=== PATIENT | female | born 1985 | race Caucasian/White ===

== ENCOUNTER 2017-05-11 20:27 | Emergency (ER) | payer OTHER ==
[~2017-05-11] VITALS: Ht 162.6 cm; Wt 75.0 kg
[~2017-05-11 20:27] MED LIST: NORE1TAB50 PO; RXC5 PO; SUMA100T16 PO; VNTHFA/IN INH
[2017-05-11 20:47] VITALS: TEMP 36.8; Ht 162.6 cm; Wt 75.0 kg
--- NOTE | 2017-05-11 22:00 | EMERGENCY ROOM VISIT NOTE ---
History First contact with patient: 21:33 Chief Complaint: VAGINAL BLEEDING Stated Complaint: 6 WEEKS , BLEEDING,CRAMPS History of Present Illness The patient is a 31 year old female who presents to the Emergency Room with complaints of vaginal bleeding. The patient states that she is approximately 6 weeks by dates. Her last menstrual period was March 31, 2017. She states she has had 3 positive urine tests. She states that this afternoon, she developed abdominal cramping and light vaginal bleeding. She states that the bleeding is brownish and pinkish in color. She has not passed any clots. She has had 2 previous pregnancies which went full term. She delivered by . She compares the pain to very mild period cramps and rates her discomfort a 1/10. She is blood type O+. She denies any history of bleeding or clotting disorders. Review of Systems A complete 10 point review of systems was reviewed with the patient with pertinent positives and negatives as per history of present illness. All else were negative. Past Medical/Surgical History Medical Problems: (1) Migraine (2) Tobacco use disorder Family History FH: heart disease MOTHER GRANDFATHER GRANDMOTHER FH: migraine headache FH: pulmonary embolism MOTHER Social History Smoking Status: Former Smoker Alcohol Use: none Drug Use: none Marital Status: single Housing Status: lives with family Occupation Status: employed Current/Historical Medications Scheduled Sumatriptan Succinate (Imitrex), 100 MG PO UD Scheduled PRN Albuterol Hfa (Ventolin Hfa), 2 PUFFS INH Q6H PRN for SOB/Wheezing Oxycodone HCl (Oxycodone HCl), 5 MG PO Q4H PRN for Pain Physical Exam Vital Signs Date Time Temp Pulse Resp B/P (MAP) Pulse Ox O2 Delivery O2 Flow Rate FiO2 05/12/17 00:03 90 20 127/92 99 05/11/17 23:08 77 16 101/74 98 Room Air 05/11/17 21:54 85 18 110/71 100 Room Air 05/11/17 20:47 36.8 94 16 131/96 100 Room Air Physical Exam VITALS: Vitals are noted on the nurse's note and reviewed by myself. Vital signs stable. GENERAL: This is a 31-year-old female, in no acute distress, nondiaphoretic, well-developed well-nourished. EYES: Pupils equal round and reactive to light and accommodation. MOUTH: Mucous membranes moist. HEART: Regular rate and rhythm without murmurs gallops or rubs. LUNGS: Clear to auscultation bilaterally without wheezes, rales or rhonchi. ABDOMEN: Positive bowel sounds x 4. Soft, mild tenderness to palpation across the lower abdomen. No guarding or rebound tenderness. NEURO: Patient was alert and oriented to person place and time. Medical Decision & Procedures ER Provider Diagnostic Interpretation: LIMITED (US), TRANSVAGINAL CLINICAL HISTORY: 31 years-old Female presenting with vaginal bleeding, approx 6 wks . TECHNIQUE: Real-time grayscale and M-mode Doppler ultrasound imaging of the pelvis was performed first using a transabdominal probe and subsequently transvaginal for better characterization. Color and spectral Doppler ultrasound imaging of the adnexa was also performed. COMPARISON: 03/29/2014. FINDINGS: Uterus: Possible gestational sac noted in the endometrial cavity, measuring up 1 to 2 mm. Endometrium thickened measuring 11 mm. Anteverted uterus. Cervix contains trace endocervical fluid. Right adnexa: Right ovary normal. Right ovary measures 3.3 x 1.6 x 2.0 cm. Normal color Doppler flow and arterial and venous waveforms within the ovarian parenchyma. Left adnexa: Left ovary normal. Left ovary measures 2.2 x 1.5 x 1.4 cm. Normal color Doppler flow and arterial and venous waveforms within the ovarian parenchyma. Other: No free fluid. IMPRESSION: 1. Possible gestational sac in the endometrial cavity with decidual reaction of the endometrium. Close clinical and imaging follow-up recommended. Trace fluid in the cervix could represent blood products. By strict criteria, these findings represent of unknown location. No evidence of ectopic . 2. No ovarian torsion. Laboratory Results 05/11/17 22:00 Red Blood Count 4.69, Mean Corpuscular Volume 86.1, Mean Corpuscular Hemoglobin 30.1, Mean Corpuscular Hemoglobin Concent 34.9, Mean Platelet Volume 9.6, Neutrophils (%) (Auto) 59.3, Lymphocytes (%) (Auto) 30.9, Monocytes (%) (Auto) 7.3, Eosinophils (%) (Auto) 1.8, Basophils (%) (Auto) 0.5, Neutrophils # (Auto) 7.58, Lymphocytes # (Auto) 3.96, Monocytes # (Auto) 0.94, Eosinophils # (Auto) 0.23, Basophils # (Auto) 0.06 05/11/17 22:00 Test 05/11/17 22:00 White Blood Count 12.80 K/uL (4.8-10.8) Red Blood Count 4.69 M/uL (4.2-5.4) Hemoglobin 14.1 g/dL (12.0-16.0) Hematocrit 40.4 % (37-47) Mean Corpuscular Volume 86.1 fL (80-100) Mean Corpuscular Hemoglobin 30.1 pg (25-34) Mean Corpuscular Hemoglobin Concent 34.9 g/dl (32-36) Platelet Count 315 K/uL (130-400) Mean Platelet Volume 9.6 fL (7.4-10.4) Neutrophils (%) (Auto) 59.3 % Lymphocytes (%) (Auto) 30.9 % Monocytes (%) (Auto) 7.3 % Eosinophils (%) (Auto) 1.8 % Basophils (%) (Auto) 0.5 % Neutrophils # (Auto) 7.58 K/uL (1.4-6.5) Lymphocytes # (Auto) 3.96 K/uL (1.2-3.4) Monocytes # (Auto) 0.94 K/uL (0.11-0.59) Eosinophils # (Auto) 0.23 K/uL (0-0.5) Basophils # (Auto) 0.06 K/uL (0-0.2) RDW Standard Deviation 41.0 fL (36.4-46.3) RDW Coefficient of Variation 13.0 % (11.5-14.5) Immature Granulocyte % (Auto) 0.2 % Immature Granulocyte # (Auto) 0.03 K/uL (0.00-0.02) Urine Color YELLOW Urine Appearance CLEAR (CLEAR) Urine pH 5.5 (4.5-7.5) Urine Specific [place] 1.025 (1.000-1.030) Urine Protein NEG (NEG) Urine Glucose (UA) NEG (NEG) Urine Ketones TRACE (NEG) Urine Occult Blood 2+ (NEG) Urine Nitrite NEG (NEG) Urine Bilirubin NEG (NEG) Urine Urobilinogen NEG (NEG) Urine Leukocyte Esterase TRACE (NEG) Urine WBC (Auto) 5-10 /hpf (0-5) Urine RBC (Auto) >30 /hpf (0-4) Urine Hyaline Casts (Auto) 1-5 /lpf (0-5) Urine Epithelial Cells (Auto) 20-30 /lpf (0-5) Urine Bacteria (Auto) 1+ (NEG) Urine Mucus PRESENT (NONE PRSENT) Urine Yeast (Auto) (NONE PRSENT) Anion Gap 3.0 mmol/L (3-11) Est Creatinine Clear Calc Drug Dose 106.4 ml/min Estimated GFR () 121.1 Estimated GFR (Non- 104.5 BUN/Creatinine Ratio 13.1 (10-20) Calcium Level 8.3 mg/dl (8.5-10.1) Total Bilirubin 0.5 mg/dl (0.2-1) Aspartate Amino Transf (AST/SGOT) 11 U/L (15-37) Alanine Aminotransferase (ALT/SGPT) 18 U/L (12-78) Alkaline Phosphatase 78 U/L (45-117) Total Protein 7.1 gm/dl (6.4-8.2) Albumin 3.5 gm/dl (3.4-5.0) Globulin 3.6 gm/dl (2.5-4.0) Albumin/Globulin Ratio 1.0 (0.9-2) Human Chorionic Gonadotropin, Quant 22 mIU/mL Medical Decision Differential diagnosis includes spontaneous , first trimester bleeding, ectopic , among others. The patient is a 31-year-old female who presents today complaining of vaginal bleeding in early . Labs revealed mild leukocytosis. Repeat ultrasound was performed and showed possible intrauterine gestational sac. No evidence of an ectopic . Quantitative beta hCG was found to be only 22. The patient was informed that she is likely experiencing a miscarriage. She was instructed to call DISBURSEMENT CLERK to schedule follow-up, as she will need repeat beta-hCG and ultrasound until resolution. She is blood type O+ and will not require RhoGam. Based on the patient's presentation and work up, I feel the patient is stable for outpatient treatment. The patient was educated to return to the emergency department for any worsening of their current condition or new/concerning symptoms, specifically heavy bleeding or severe abdominal pain. She will follow up with DISBURSEMENT CLERK. Medication Reconcilliation Current Medication List: was personally reviewed by me Blood Pressure Screening Patient's blood pressure: Normal blood pressure Impression Primary Impression: Spontaneous Departure Information Dispostion Home / Self-Care Condition GOOD Referrals Mathew Flores M.D.([facility]) (PCP) Patient Instructions My [facility] Additional Instructions Your blood work and ultrasound show that you are most likely having a miscarriage. This is very common in the first trimester or . Contact your DISBURSEMENT CLERK in the morning to schedule a follow-up appointment. For pain control, you can use the following [id number] medicines (if >12 yo): - Regular strength (325mg/tab) Tylenol (acetaminophen) 2 tabs every 4-6 hours as needed. Do not exceed 12 tablets in a 24 hour period. Avoid taking more than 4 grams (4000 mg) of Tylenol per day. This includes any other sources of acetaminophen you may take on a regular basis. Return to the emergency department immediately with heavy bleeding, lightheadedness, passing out, severe pain or any other new/concerning symptoms.
[2017-05-11 22:28] LABS: BASO % 0.5 %; BASO ABS # 0.06 K/uL (0-0.2); EOS % 1.8 %; EOS ABS # 0.23 K/uL (0-0.5); HEMATOCRIT 40.4 % (37-47); HEMOGLOBIN 14.1 g/dL (12.0-16.0); IG# 0.03 K/uL (0.00-0.02); LYMPH % 30.9 %; LYMPH ABS # 3.96 K/uL (1.2-3.4); MEAN CELL VOLUME 86.1 fL (80-100); MEAN CORPUSCULAR HEMOGLOBIN 30.1 pg (25-34); MEAN CORPUSCULAR HGB CONC 34.9 g/dl (32-36); MEAN PLATELET VOLUME 9.6 fL (7.4-10.4); MONO % 7.3 %; MONO ABS # 0.94 K/uL (0.11-0.59); NEUT % 59.3 %; NEUT ABS # 7.58 K/uL (1.4-6.5); PLATELET COUNT 315 K/uL (130-400)
[2017-05-11 22:48] LABS: ALBUMIN 3.5 gm/dl (3.4-5.0); CALCIUM 8.3 mg/dl (8.5-10.1); CREATININE 0.76 mg/dl (0.60-1.20); POTASSIUM 3.7 mmol/L (3.5-5.1)
[2017-05-11 22:50] LABS: TOTAL PROTEIN 7.1 gm/dl (6.4-8.2)
--- NOTE | 2017-05-11 23:01 | DIAGNOSTIC IMAGING REPORT ---
LIMITED (US), TRANSVAGINAL CLINICAL HISTORY: 31 years-old Female presenting with vaginal bleeding, approx 6 wks . TECHNIQUE: Real-time grayscale and M-mode Doppler ultrasound imaging of the pelvis was performed first using a transabdominal probe and subsequently transvaginal for better characterization. Color and spectral Doppler ultrasound imaging of the adnexa was also performed. COMPARISON: 03/29/2014. FINDINGS: Uterus: Possible gestational sac noted in the endometrial cavity, measuring up 1 to 2 mm. Endometrium thickened measuring 11 mm. Anteverted uterus. Cervix contains trace endocervical fluid. Right adnexa: Right ovary normal. Right ovary measures 3.3 x 1.6 x 2.0 cm. Normal color Doppler flow and arterial and venous waveforms within the ovarian parenchyma. Left adnexa: Left ovary normal. Left ovary measures 2.2 x 1.5 x 1.4 cm. Normal color Doppler flow and arterial and venous waveforms within the ovarian parenchyma. Other: No free fluid. IMPRESSION: 1. Possible gestational sac in the endometrial cavity with decidual reaction of the endometrium. Close clinical and imaging follow-up recommended. Trace fluid in the cervix could represent blood products. By strict criteria, these findings represent of unknown location. No evidence of ectopic . 2. No ovarian torsion. Electronically signed by: Hasmukh Enrique M.D. 05/11/2017 11:00 PM Dictated Date/Time: 05/11/2017 10:56 PM
[2017-05-12 00:03] VITALS: BP 127/92; PULSE 90; O2SAT 99
== END 2017-05-12 00:03 | disposition home or self-care (01) ==
LOC: C.EDB 20:28 → C.EDC 05-12 00:03
DX: O03.9 Complete or unspecified spontaneous abortion without complication (principal); Z82.49 Family history of ischemic heart disease and other diseases of the circulatory system; Z87.891 Personal history of nicotine dependence

== ENCOUNTER 2018-09-08 23:00 | Observation (INO) ==
[2018-09-08] MEDS ORDERED: SODIUM CHLORIDE 0.9% 1000ML 1,000 ML IV SCH (23:45)
[2018-09-08] MEDS ORDERED: ACETAMINOPHEN 1,000 MG/100 ML VIAL IV STA (23:52)
[2018-09-09 00:11] LABS: Basophils # (auto) 0.03 K/uL (0-0.2); Basophils % (auto) 0.2 %; Eosinophils # (auto) 0.13 K/uL (0-0.5); Eosinophils % (auto) 0.8 %; Hematocrit (blood only) 36.9 % (37-47); Hemoglobin 12.9 g/dL (12.0-16.0); Immature Granulocytes # (auto) 0.03 K/uL (0.00-0.02); Immature Granulocytes % (auto) 0.2 %; Lymphocytes # (auto) 2.64 K/uL (1.2-3.4); Lymphocytes % (auto) 15.4 %; Mean Corpuscular Volume 85.4 fL (80-100); Mean Platelet Volume 9.9 fL (7.4-10.4); Monocytes # (auto) 0.79 K/uL (0.11-0.59); Monocytes % (auto) 4.6 %; Neutrophils # (auto) 13.48 K/uL (1.4-6.5); Neutrophils % (auto) 78.8 %; Platelet Count 289 K/uL (130-400); RDW Coefficient of Variation 12.8 % (11.5-14.5); RDW Standard Deviation 40.1 fL (36.4-46.3); Red Blood Count 4.32 M/uL (4.2-5.4)
[2018-09-09 00:13] LABS: Appearance Urine Clear (Clear); Bilirubin Urine Negative (Negative); Blood Urine Negative (Negative); Color Urine Yellow; Glucose Urine UA Negative (Negative); Ketones Urine Negative (Negative); Leukocyte Esterase Urine Negative (Negative); Nitrite Urine Negative (Negative); Protein Urine Negative (Negative); Specific Gravity Urine 1.019 (1.000-1.030); Urobilinogen Urine Negative (Negative); pH Urine 8.5 (4.5-7.5)
[2018-09-09 00:29] LABS: Partial Thromboplastin Ratio 0.8; Partial Thromboplastin Time 22.7 Seconds (21.0-31.0); Prothrombin Time 10.4 Seconds (9.0-12.0)
[2018-09-09 00:52] LABS: Albumin Globulin Ratio 1.1 (0.9-2); Albumin Level 3.4 gm/dl (3.4-5.0); BUN Creatinine Ratio 13.3 (10-20); Bilirubin,Total 0.3 mg/dl (0.2-1); Calcium 8.1 mg/dl (8.5-10.1); Creatinine Clr Calc Pharmacy 101.3 ml/min; Est GFR (African American) 113.1; Est GFR (Non-African American) 97.6; Globulin 3.1 gm/dl (2.5-4.0); Total Protein 6.5 gm/dl (6.4-8.2)
[2018-09-09] MEDS ORDERED: MoRPHine SULFATE 4 MG/ML 1 ML CARP\\VIAL IV STA ×2 (01:05→02:04)
[2018-09-09] MEDS ORDERED: ONDANSETRON INJ 2 MG/ML 2 ML VIAL IV STA (02:04)
[2018-09-09] MEDS ORDERED: HYDROmorphone INJ 1 MG/ML SYRINGE IV STA (02:33)
--- NOTE | 2018-09-09 02:37 | Emergency Department Note ---
History of Present Illness General Chief complaint: Flank Pain Stated complaint: PAIN IN L SIDE History of Present Illness Maximum Pain Intensity: 10 This 32-year-old presents to the ER complaining of severe lower abdominal and left flank pain who is currently 5 weeks Location: Abdomen and flank Quality: Severe Severity: Severe Duration: Today Timing: Today Context: Pain got worse and patient returned Modifying factors: better with nothing; worse with activity Patient was seen earlier today with no clear etiology for the pain. She think she is 5 weeks . Patient denies vaginal bleeding, urinary symptoms, fevers, vomiting, diarrhea. No injury to the area. She had 2 miscarriages in the past and has 2 living children. Home Medications Home Medications Medication Instructions Recorded Confirmed Type No Known Home Medications 09/09/18 09/09/18 History Allergies Allergy/AdvReac Type Severity Reaction Status Date / Time No Known Allergies Allergy Verified 09/09/18 00:30 Past Med/Surg History Medical History Pneumonia Asthma Spontaneous Migraines Surgical History History of delivery History of ankle surgery H/O breast augmentation No significant past surgical history Family History Other Diabetes Heart disease Hypertension Kidney disease Social History Preferred Language: Irish marital status: Current Living Situation: Spouse and Family Feels Safe at Home: Yes Smoking Status: Former smoker Hx Alcohol Use: Yes Review of Systems All systems reviewed & are unremarkable except as noted in HPI & below Physical Exam Vital Signs Vital Signs - 24 hr 09/08/18 23:31 09/09/18 01:46 09/09/18 02:41 Temperature 36.7 C Temperature Source Oral Sepsis Action Taken by Nursing No Action Required Pulse Rate 87 Pulse Rate [Finger] 84 86 Respiratory Rate 24 18 18 Blood Pressure 127/87 Blood Pressure [Left Arm] 113/71 105/86 Blood Pressure Mean 100 Blood Pressure Mean [Left Arm] 85 92 Pulse Oximetry 99 99 99 Oxygen Delivery Method Room Air Room Air Room Air 09/09/18 03:41 Temperature Temperature Source Sepsis Action Taken by Nursing Pulse Rate Pulse Rate [Finger] 88 Respiratory Rate 18 Blood Pressure Blood Pressure [Left Arm] 103/69 Blood Pressure Mean Blood Pressure Mean [Left Arm] 80 Pulse Oximetry 98 Oxygen Delivery Method Room Air VITALS: Vitals are noted on the nurse's note and reviewed by myself. Vital signs stable. GENERAL: White female writhing in pain, in no acute distress, nondiaphoretic, well-developed well-nourished. SKIN: The skin was without rashes, erythema, edema, or bruising. There is no tenting of the skin. Capillary reflex less than 2 seconds. HEAD: Normocephalic atraumatic. EARS: External auditory canals clear EYES: Pupils equal round and reactive to light and accommodation. Conjunctivae without injection, sclerae without icterus. Extraocular movements intact. NOSE: Patent, turbinates without inflammation or discharge. MOUTH: Mucous membranes moist. Pharynx without erythema or exudate. Uvula midline. Airway patent. Tongue does not deviate. NECK: Supple without nuchal rigidity. No lymphadenopathy. No thyromegaly. Cervical spine is nontender. No JVD. HEART: Regular rate and rhythm without murmurs gallops or rubs. LUNGS: Clear to auscultation bilaterally without wheezes, rales or rhonchi. No retractions or accessory muscle use. ABDOMEN: Positive bowel sounds x 4. Normal tympanic percussion. Soft, tender to palpation lower abdomen, without masses or organomegaly. Lopez sign negative. No guarding or rebound tenderness. No CVA tenderness exam: Minimal blood in the vault, os is closed. No CMT tenderness. Left adnexal tender to palpation. Risk Mgr present. MUSCULOSKELETAL: No muscle atrophy, erythema, or edema noted. NEURO: Patient was alert and oriented to person place and time. Normal sensation to light and sharp touch. No focal neurological deficits. Course Administered Medications Discontinued Medications Fentanyl Citrate (Fentanyl Citrate) 100 mcg IV NOW STA Stop: 09/09/18 03:56 Last Admin: 09/09/18 03:59 Dose: 100 mcg Documented by: [id number] Hydromorphone HCl (Dilaudid) 1 mg IV NOW STA Stop: 09/09/18 02:34 Last Admin: 09/09/18 02:35 Dose: 1 mg Documented by: [id number] Acetaminophen (Ofirmev) 1,000 mg in 100 mls @ 400 mls/hr IV NOW STA Stop: 09/09/18 00:06 Last Infusion: 09/09/18 00:32 Dose: 0 mls/hr Documented by: [id number] Admin: 09/09/18 00:09 Dose: 400 mls/hr Documented by: [id number] Sodium Chloride (Nss 1000ml) 1,000 mls @ 999 mls/hr IV .Q1H1M RENATO Stop: 09/09/18 00:45 Last Infusion: 09/09/18 01:14 Dose: 0 mls/hr Documented by: [id number] Admin: 09/09/18 00:09 Dose: 999 mls/hr Documented by: [id number] Morphine Sulfate (Morphine Sulfate) 4 mg IV NOW STA Stop: 09/09/18 01:06 Last Admin: 09/09/18 01:15 Dose: 4 mg Documented by: [id number] Morphine Sulfate (Morphine Sulfate) 4 mg IV NOW STA Stop: 09/09/18 02:05 Last Admin: 09/09/18 02:09 Dose: 4 mg Documented by: [id number] Ondansetron HCl (Zofran) 4 mg IV NOW STA Stop: 09/09/18 02:05 Last Admin: 09/09/18 02:09 Dose: 4 mg Documented by: [id number] Medical Decision Making Medical Records Attestation: I reviewed the patient's medical records. Home Medications Current Medication List: was personally reviewed by me Laboratory Data Attestation: I reviewed the patient's lab results. Result diagrams: 09/08/18 23:58 09/08/18 23:58 Lab Results 09/08/18 09/08/18 09/08/18 Range/Units 23:58 23:58 23:58 WBC 17.10 H (4.8-10.8) K/uL RBC 4.32 (4.2-5.4) M/uL Hgb 12.9 (12.0-16.0) g/dL POC Hgb (12.0-16.0) g/dl Hct 36.9 L (37-47) % POC Hct (37-47) % MCV 85.4 (80-100) fL MCH 29.9 (25-34) pg MCHC 35.0 (32-36) g/dL RDW Std Deviation 40.1 (36.4-46.3) fL RDW Coeff of Mynor 12.8 (11.5-14.5) % Plt Count 289 (130-400) K/uL MPV 9.9 (7.4-10.4) fL Immature Gran % (Auto) 0.2 % Neut % (Auto) 78.8 % Lymph % (Auto) 15.4 % Evangeline % (Auto) 4.6 % Eos % (Auto) 0.8 % Baso % (Auto) 0.2 % Immature Gran # (Auto) 0.03 H (0.00-0.02) K/uL Neut # (Auto) 13.48 H (1.4-6.5) K/uL Lymph # (Auto) 2.64 (1.2-3.4) K/uL Evangeline # (Auto) 0.79 H (0.11-0.59) K/uL Eos # (Auto) 0.13 (0-0.5) K/uL Baso # (Auto) 0.03 (0-0.2) K/uL PT 10.4 (9.0-12.0) Seconds INR 1.0 (0.9-1.1) APTT 22.7 (21.0-31.0) Seconds PTT Ratio 0.8 POC Sodium (135-144) mEq/L Sodium 138 (136-145) mmol/L POC Potassium (3.3-5.0) mEq/L Potassium 4.0 D (3.5-5.1) mmol/L POC Chloride (101-112) mEq/L Chloride 110 H (98-107) mmol/L Carbon Dioxide 24 (21-32) mmol/L POC Total CO2 (24-31) mEq/l Anion Gap 4.0 (3-11) POC Anion Gap (16-25) mmol/L POC BUN (7-18) mg/dl BUN 11 (7-18) mg/dl Creatinine 0.80 (0.6-1.2) mg/dl POC Creatinine (0.6-1.3) mg/dl Est Cr Clr Drug Dosing 101.3 ml/min Est GFR ( Amer) 113.1 Est GFR (Non-Af Amer) 97.6 BUN/Creatinine Ratio 13.3 (10-20) Glucose 129 H (70-99) mg/dl POC Glucose (other) (70-99) mg/dl Calcium 8.1 L (8.5-10.1) mg/dl POC Ioniz Calcium Alexandra (1.12-1.32) mmol/l Total Bilirubin 0.3 (0.2-1) mg/dl AST 11 L (15-37) U/L ALT 15 (12-78) U/L Alkaline Phosphatase 79 (45-117) U/L Total Protein 6.5 (6.4-8.2) gm/dl Albumin 3.4 (3.4-5.0) gm/dl Globulin 3.1 (2.5-4.0) gm/dl Albumin/Globulin Ratio 1.1 (0.9-2) HCG, Quant mIU/ml Urine Color Urine Appearance (Clear) Urine pH (4.5-7.5) Ur Specific [place] (1.000-1.030) Urine Protein (Negative) Urine Glucose (UA) (Negative) Urine Ketones (Negative) Urine Blood (Negative) Urine Nitrite (Negative) Urine Bilirubin (Negative) Urine Urobilinogen (Negative) Ur Leukocyte Esterase (Negative) Blood Type Antibody Screen 09/08/18 09/09/18 09/09/18 Range/Units 23:58 00:04 02:17 WBC (4.8-10.8) K/uL RBC (4.2-5.4) M/uL Hgb (12.0-16.0) g/dL POC Hgb (12.0-16.0) g/dl Hct (37-47) % POC Hct (37-47) % MCV (80-100) fL MCH (25-34) pg MCHC (32-36) g/dL RDW Std Deviation (36.4-46.3) fL RDW Coeff of Mynor (11.5-14.5) % Plt Count (130-400) K/uL MPV (7.4-10.4) fL Immature Gran % (Auto) % Neut % (Auto) % Lymph % (Auto) % Evangeline % (Auto) % Eos % (Auto) % Baso % (Auto) % Immature Gran # (Auto) (0.00-0.02) K/uL Neut # (Auto) (1.4-6.5) K/uL Lymph # (Auto) (1.2-3.4) K/uL Evangeline # (Auto) (0.11-0.59) K/uL Eos # (Auto) (0-0.5) K/uL Baso # (Auto) (0-0.2) K/uL PT (9.0-12.0) Seconds INR (0.9-1.1) APTT (21.0-31.0) Seconds PTT Ratio POC Sodium (135-144) mEq/L Sodium (136-145) mmol/L POC Potassium (3.3-5.0) mEq/L Potassium (3.5-5.1) mmol/L POC Chloride (101-112) mEq/L Chloride (98-107) mmol/L Carbon Dioxide (21-32) mmol/L POC Total CO2 (24-31) mEq/l Anion Gap (3-11) POC Anion Gap (16-25) mmol/L POC BUN (7-18) mg/dl BUN (7-18) mg/dl Creatinine (0.6-1.2) mg/dl POC Creatinine (0.6-1.3) mg/dl Est Cr Clr Drug Dosing ml/min Est GFR ( Amer) Est GFR (Non-Af Amer) BUN/Creatinine Ratio (10-20) Glucose (70-99) mg/dl POC Glucose (other) (70-99) mg/dl Calcium (8.5-10.1) mg/dl POC Ioniz Calcium Alexandra (1.12-1.32) mmol/l Total Bilirubin (0.2-1) mg/dl AST (15-37) U/L ALT (12-78) U/L Alkaline Phosphatase (45-117) U/L Total Protein (6.4-8.2) gm/dl Albumin (3.4-5.0) gm/dl Globulin (2.5-4.0) gm/dl Albumin/Globulin Ratio (0.9-2) HCG, Quant 648 mIU/ml Urine Color Yellow Urine Appearance Clear (Clear) Urine pH 8.5 H (4.5-7.5) Ur Specific [place] 1.019 (1.000-1.030) Urine Protein Negative (Negative) Urine Glucose (UA) Negative (Negative) Urine Ketones Negative (Negative) Urine Blood Negative (Negative) Urine Nitrite Negative (Negative) Urine Bilirubin Negative (Negative) Urine Urobilinogen Negative (Negative) Ur Leukocyte Esterase Negative (Negative) Blood Type O Positive Antibody Screen NEGATIVE 09/09/18 Range/Units 03:00 WBC (4.8-10.8) K/uL RBC (4.2-5.4) M/uL Hgb (12.0-16.0) g/dL POC Hgb 11.6 L (12.0-16.0) g/dl Hct (37-47) % POC Hct 34 L (37-47) % MCV (80-100) fL MCH (25-34) pg MCHC (32-36) g/dL RDW Std Deviation (36.4-46.3) fL RDW Coeff of Mynor (11.5-14.5) % Plt Count (130-400) K/uL MPV (7.4-10.4) fL Immature Gran % (Auto) % Neut % (Auto) % Lymph % (Auto) % Evangeline % (Auto) % Eos % (Auto) % Baso % (Auto) % Immature Gran # (Auto) (0.00-0.02) K/uL Neut # (Auto) (1.4-6.5) K/uL Lymph # (Auto) (1.2-3.4) K/uL Evangeline # (Auto) (0.11-0.59) K/uL Eos # (Auto) (0-0.5) K/uL Baso # (Auto) (0-0.2) K/uL PT (9.0-12.0) Seconds INR (0.9-1.1) APTT (21.0-31.0) Seconds PTT Ratio POC Sodium 138 (135-144) mEq/L Sodium (136-145) mmol/L POC Potassium 4.1 (3.3-5.0) mEq/L Potassium (3.5-5.1) mmol/L POC Chloride 106 (101-112) mEq/L Chloride (98-107) mmol/L Carbon Dioxide (21-32) mmol/L POC Total CO2 21 L (24-31) mEq/l Anion Gap (3-11) POC Anion Gap 17.0 (16-25) mmol/L POC BUN 9 (7-18) mg/dl BUN (7-18) mg/dl Creatinine (0.6-1.2) mg/dl POC Creatinine 0.6 (0.6-1.3) mg/dl Est Cr Clr Drug Dosing ml/min Est GFR ( Amer) Est GFR (Non-Af Amer) BUN/Creatinine Ratio (10-20) Glucose (70-99) mg/dl POC Glucose (other) 120 H (70-99) mg/dl Calcium (8.5-10.1) mg/dl POC Ioniz Calcium Alexandra 1.11 L (1.12-1.32) mmol/l Total Bilirubin (0.2-1) mg/dl AST (15-37) U/L ALT (12-78) U/L Alkaline Phosphatase (45-117) U/L Total Protein (6.4-8.2) gm/dl Albumin (3.4-5.0) gm/dl Globulin (2.5-4.0) gm/dl Albumin/Globulin Ratio (0.9-2) HCG, Quant mIU/ml Urine Color Urine Appearance (Clear) Urine pH (4.5-7.5) Ur Specific [place] (1.000-1.030) Urine Protein (Negative) Urine Glucose (UA) (Negative) Urine Ketones (Negative) Urine Blood (Negative) Urine Nitrite (Negative) Urine Bilirubin (Negative) Urine Urobilinogen (Negative) Ur Leukocyte Esterase (Negative) Blood Type Antibody Screen Imaging Data Attestation: I personally reviewed and interpreted this imaging study as follows: MDM Narrative Prior records/ancillary studies reviewed. Triage Nursing notes reviewed. Additional history obtained from the family. The patient's history was concerning for and abdominal pain. Differential diagnosis: Etiologies such as ectopic , intra-abdominal, miscarriage, dysfunction uterine bleeding, bleeding dyscrasia, trauma, infection, as well as others were entertained. Physical examination: As above. Vitals signs revealed stable. ER treatment provided: IV fluids, morphine, Dilaudid, fentanyl On reassessment the patient felt better. Diagnostic interpretation by me: The labs revealed the patient to the Rh O+. CBC, coagulation studies, and chemistries were unremarkable. Quantitative hCG was 648 which is lower than earlier visit Stable H&H. Leukocytosis. Imaging studies: US OB 1st TRIMESTER: No intrauterine gestation. There is free fluid in the pelvis. There is free fluid in the right upper quadrant. No endometrial thickening. Right ovary is not well seen. There is normal blood flow in the left ovary. Left adnexa demonstrates a hypoechoic, complex lesion surrounding the left ovary and measuring 6 cm. This was not previously seen. There is peripheral vascularity. Findings are consistent with ruptured ectopic . Radiologist: Gabriele Graham MD Consultation: A consultation was placed with the bench assembler electrical physician, Dr. Becker. The case was discussed and diagnostics were reviewed. He will evaluate the patient and take the patient to the OR. This appears to be consistent with ruptured ectopic . Patient is typed and screened. She was consented to blood if needed. Repeat abdominal exam showed increasing pain. Repeat fast ultrasound shows free fluid in the right upper quadrant. OB surgery evaluated the patient and will take her to the OR. By the evaluation outlined above emergent etiologies such as bleeding dyscrasia, trauma, as well as others were deemed relatively unlikely. The pt informed about the findings as listed above. All questions were answered and pleased with the treatment. Case reviewed with my attending The chart was completed utilizing [employer] Speech voice recognition software. Grammatical errors, random word insertions, pronoun errors, and incomplete sentences are an occassional consequence of this system due to software limitations, ambient noise, and hardware issues. Any formal questions or concerns about the content, text, or information contained within the body of this dictation should be directly addressed to the physician clerical dentist assistant for clarification. I have personally spent greater than 30 minutes of critical care time in the direct management of this patient. This includes bedside care, interpretation of diagnostic studies, and testing, discussion with consultants, patient, and family members, and other required patient management activities. This 30 minutes is in excess of all separately billable procedures. Impression & Plan Ruptured ectopic , Hemoperitoneum Discharge Plan Visit Data Chief Complaint: Flank Pain Stated Complaint: PAIN IN L SIDE ED Provider: Shweta Alvarado ED Midlevel Provider: Yoselyn Lentz Discharge Problem: Ruptured ectopic , Hemoperitoneum Patient Disposition: Being Evaluated by Surgeon Condition: Fair Forms Stand Alone Forms: My [employer] Prescriptions Prescriptions: No Action No Known Home Medications RF: 0 Referrals Referrals: Mathew Flores MD [Primary Care Provider] -
[2018-09-09 03:17] LABS: iSTAT Creatinine 0.6 mg/dl (0.6-1.3); iSTAT Hemoglobin 11.6 g/dl (12.0-16.0); iSTAT Ionized Calcium 1.11 mmol/l (1.12-1.32); iSTAT Potassium 4.1 mEq/L (3.3-5.0)
[2018-09-09] MEDS ORDERED: fentaNYL citrate 100 MCG/2 ML VIAL IV STA (03:55)
[2018-09-09] MEDS ORDERED: PROPOFOL IV EMULSION 10 MG/ML 20 ML VIAL IV ONE (04:33)
[2018-09-09] MEDS ORDERED: ONDANSETRON INJ 2 MG/ML 2 ML VIAL ONE (04:33)
[2018-09-09] MEDS ORDERED: DEXAMETHASONE SOD INJ 4 MG/ML VIAL ONE (04:33)
[2018-09-09] MEDS ORDERED: SUCCINYLCHOLINE CHLORIDE 20 MG/ML 10 ML VIAL ONE (04:33)
[2018-09-09] MEDS ORDERED: MIDAZOLAM HCL 1 MG/ML 2ML VIAL ONE (04:33)
[2018-09-09] MEDS ORDERED: ROCURONIUM BROMIDE 10 MG/ML 5 ML VIAL ONE (04:33)
[2018-09-09] MEDS ORDERED: GLYCOPYRROLATE 0.2 MG/ML VIAL ONE (04:33)
[2018-09-09] MEDS ORDERED: NEOSTIGMINE METHYLSULFATE 5 MG/5 ML SYR ONE (04:33)
[2018-09-09] MEDS ORDERED: fentaNYL citrate 100 MCG/2 ML VIAL ONE ×2 (04:33→07:25)
--- NOTE | 2018-09-09 04:34 | History and Physical Report ---
DATE OF ADMISSION: 09/08/2018 CHIEF COMPLAINT: Left-sided abdominal pain, ruptured ectopic on ultrasound with intraperitoneal bleeding. HISTORY OF PRESENT ILLNESS: The patient is a 32-year-old 5, para 2. She has had 2 previous spontaneous ABs. Her last menstrual period for this was 08/03/2018. She was doing well until the day prior to admission in the evening when she had some left-sided discomfort. Was seen in the ER, was evaluated with beta units. The beta units were normal. She had been followed with serial beta units in [facility]. They had showed an appropriate rise and the ultrasound was negative. She was discharged, came back a few hours later with increasing left-sided pain. At this time, ultrasound showed a complex mass of the left adnexa along with intraperitoneal fluid. She was diagnosed as having a ruptured left-sided ectopic . PAST MEDICAL HISTORY: Two children in good health. She has history of migraines. ALLERGIES: No known drug allergies. PAST SURGICAL HISTORY: She has had 2 previous surgeries. She has had her right ankle operated on twice. She had breast augmentation. SOCIAL HISTORY: She is a smoker. She is down to about 2 cigarettes a day, smoked for 13 years. No alcohol intake. 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 FAMILY HISTORY: Mom is 54 in good health. Father 54 in good health. Two brothers in good health. REVIEW OF SYSTEMS: History of migraines. PHYSICAL EXAMINATION: GENERAL: Well-developed, well-nourished, 32-year-old white female, alert, oriented x3 and cooperative in a moderate amount of distress due to abdominal pain. EYES: Conjunctivae are pink. Sclerae white, no evidence of jaundice. EARS: Had normal light reflex bilaterally. NOSE: Had normal mucosa. Septum is midline. There were no polyps. THROAT: No erythema or evidence of infection. Teeth are in good state of repair. HEAD: Normocephalic, normal distribution of hair. NECK: Supple. Trachea midline. Thyroid is not enlarged. There is no adenopathy appreciated. Both carotids are of good intensity. CHEST: Clear to auscultation and percussion. No wheezes, rales or rhonchi appreciated. HEART: Had regular rhythm. S1 and S2 are normal. BREASTS: Status post augmentation. ABDOMEN: Tender, diffuse abdominal tenderness. MUSCULOSKELETAL: Revealed no calf tenderness. IMPRESSIONS OF THIS CASE: Status post breast augmentation, status post x2, status post right ankle surgery x2, and ruptured left-sided ectopic with intra-abdominal bleeding.
[2018-09-09] MEDS ORDERED: ePHEDrine sulfate 50 MG/ML AMP IV PRN (04:42)
[2018-09-09] MEDS ORDERED: ATROPINE SULFATE 0.1 MG/ML 10ML SYR IV PRN (04:42)
[2018-09-09] MEDS ORDERED: ONDANSETRON INJ 2 MG/ML 2 ML VIAL IV PRN (04:42)
--- NOTE | 2018-09-09 04:42 | Anesthesiology Consultation ---
Date of Service September 09, 2018 Assessment & Plan (1) Encounter for pre-operative examination: Chart Review Chart Review: Acceptable Risk for Surgery and Patient NOT seen in Pre Admission Testing Consults Requested none History Height/Weight Height: 5 ft 4 in Weight: 76.9 kg Allergies Allergy/AdvReac Type Severity Reaction Status Date / Time No Known Allergies Allergy Verified 09/09/18 00:30 Medications Home Medications Medication Instructions Recorded Confirmed Last Taken No Known Home Medications 09/09/18 09/09/18 Unknown NPO Date Last Intake of Fluids: 09/08/18 Time Last Intake of Fluids: 19:30 Date Last Intake of Solids: 09/08/18 Time Last Intake of Solids: 19:30 Past Medical History Medical History Pneumonia Asthma Spontaneous Migraines Exercise / Class Metabolic Activity II 4-5 Yardwork/Stairs/Walk up hill Past Family History Family History Other Diabetes Heart disease Hypertension Kidney disease Past Surgical History Surgical History History of delivery History of ankle surgery H/O breast augmentation Past Anesthesia History No Hx of Anesthesia Complications and No Family Hx of Anesthesia Complications History of PONV No Hx of PONV and No Hx of Motion Sickness Social History Smoking Status: Current some day smoker Hx Alcohol Use: Yes Alcohol type: beer alcohol intake frequency: holidays/special occasions only Hx Substance Use: No Physical Exam Vital Signs Last Vital Signs Temp 36.7 C 09/08/18 23:31 Pulse 88 09/09/18 03:41 Resp 18 09/09/18 03:41 BP 103/69 09/09/18 03:41 Pulse Ox 98 09/09/18 03:41 Testing Laboratory Results 09/08/18 23:58 09/08/18 23:58 09/08/18 09/08/18 09/09/18 23:58 23:58 00:04 PT 10.4 INR 1.0 APTT 22.7 HCG, Quant 648 Urine Color Yellow Urine Appearance Clear Urine pH 8.5 H Ur Specific [place] 1.019 Urine Protein Negative Urine Glucose (UA) Negative Urine Ketones Negative Urine Nitrite Negative Ur Leukocyte Esterase Negative Blood Type Antibody Screen 09/09/18 02:17 PT INR APTT HCG, Quant Urine Color Urine Appearance Urine pH Ur Specific [place] Urine Protein Urine Glucose (UA) Urine Ketones Urine Nitrite Ur Leukocyte Esterase Blood Type O Positive Antibody Screen NEGATIVE
[2018-09-09] MEDS ORDERED: BUPIVACAINE/EPINEPHRINE 0.5% MPF 1:200,000 30 ML VIAL ONE (05:10)
[2018-09-09] MEDS ORDERED: ALBUTEROL HFA INHALER 8.5 GM ONE (06:05)
--- NOTE | 2018-09-09 06:35 | Ultrasound Report ---
US renal/blad retro comp HISTORY: 32 years-old Female severe LLQ pain, ? torsion, ruptured ectopic/stone acute severe left lo wer quadrant abdominal pain COMPARISON: Pelvic ultrasound of same day TECHNIQUE: Multiple real-time sonographic images of the kidneys and urinary bladder were obtained ass essing grayscale appearance and color flow FINDINGS: The right kidney measures 11.1 x 4.3 x 5.6 cm and demonstrates no renal calculi or hydronephrosis. Tr vicente free fluid noted about the abdominal right upper quadrant. Left kidney measures 11.1 x 5.3 x 5.5 cm and demonstrates no renal calculi or hydronephrosis. Urinary bladder is partially distended and unremarkable with bilateral ureteral jets noted. IMPRESSION: 1. Unremarkable sonographic appearance of the kidneys and urinary bladder. 2. No renal calculi or hydronephrosis. 3. Nonspecific trace free fluid about the abdominal right upper quadrant. The above report was generated using voice recognition software. It may contain grammatical, syntax o r spelling errors. Electronically signed by: Jerald Guadalupe M.D. 09/09/2018 6:33 AM
--- NOTE | 2018-09-09 06:46 | Ultrasound Report ---
US OB <= 14 weeks fetus HISTORY: 32 years-old Female severe LLQ pain, ? torsion, ruptured ectopic/stone acute left lower hero drant abdominal pain with . Decreasing beta hCG of 648, yesterday was 810. COMPARISON: Renal ultrasound of same day, pelvic ultrasound 09/08/2018 TECHNIQUE: Multiple real-time sonographic images of the deep pelvic structures were obtained transabd ominally and transvaginally assessing grayscale appearance, color and spectral flow FINDINGS: Study is limited secondary to patient motion. TRANSABDOMINAL: Endometrium measures 7 mm. Uterus is anteflexed. 3 pelvic fluid is noted.. Complex structure of the l eft adnexum is better seen transvaginally. Arterial inflow is noted about the left ovary. TRANSVAGINAL: A mild to moderate amount of mildly complex free fluid is noted about the pelvis. Uterus measures 10. 1 x 4.7 x 5.6 cm. Endometrium measures 1.4 cm in thickness. No definite intrauterine gestation identi fied. Right ovary measures 2.3 x 1.3 x 1.1 cm and appears unremarkable. Left ovary measures 3.7 x 2.6 x 2.7 cm. Arterial inflow and venous outflow is documented within the left ovary. There is a large complex mixed echogenicity structure noted about the left adnexum which was not seen on prior study measurin g up to 6.0 x 3.7 x 3.9 cm without internal flow identified. IMPRESSION: 1. No intrauterine gestation identified. 2. Mild to moderate amount of complex free fluid about the pelvis. There is a large complex area abou t the left adnexum measuring up to 6.0 cm which was not seen on prior study suspicious for blood prod ucts related to ruptured ectopic gestation. Correlate clinically and with serial quantitative beta hC G analysis. The above report was generated using voice recognition software. It may contain grammatical, syntax o r spelling errors. Electronically signed by: Jeradl Guadalupe M.D. 09/09/2018 6:44 AM
--- NOTE | 2018-09-09 07:09 | Post Operative Brief Note ---
Immediate Post Op Note v1 Date of Surgery September 09, 2018 Pre & Post Diagnosis Operation Date: 09/09/18 05:00 Pre-Op Diagnosis: Ruptured ectopic on ultrasound with intraperitoneal bleeding Post-Op Diagnosis: Ruptured ectopic on ultrasound with intraperitoneal bleeding ruptured left sided ectopic Procedure Operation Date: 09/09/18 05:00 Actual Procedures p Laparoscopic Salpingectomy(Left) - Randy Roca MD Surgeon Randy Roca MD [employer] Location Manager none Estimated Blood Loss 100 Findings Consistent with Post-Op Diagnosis Fluids 2500 ml Specimens left tube and ectopic Anesthesia Type General Complications none Disposition Accompanied Patient To Recovery: No Disposition: Surgical ICU
[2018-09-09] MEDS: fentaNYL citrate 100 MCG/2 ML VIAL IV PRN ×4 (07:27→07:42)
[2018-09-09] MEDS ORDERED: HYDROmorphone INJ 1 MG/ML SYRINGE IV ONE (07:56)
[2018-09-09] MEDS: HYDROmorphone INJ 1 MG/ML SYRINGE IV PRN ×4 (07:57→08:12)
--- NOTE | 2018-09-09 08:30 | Anesthesiology Progress Note ---
Date of Service September 09, 2018 Anesthesia Post Procedure Vital Signs Vital Signs: Temp Pulse Pulse Resp BP BP Pulse Ox 09/09/18 08:20 81 15 99/55 L 99 09/09/18 08:10 83 15 104/77 99 09/09/18 08:00 85 13 112/72 98 09/09/18 07:50 78 13 104/61 99 09/09/18 07:40 69 20 105/66 98 09/09/18 07:30 98 H 20 100/73 99 09/09/18 07:20 109 H 18 109/74 98 09/09/18 07:13 36.2 C L 110 H 20 113/62 98 09/09/18 05:33 36.3 C L 75 18 96/60 L 98 09/09/18 05:14 67 18 105/56 L 97 09/09/18 04:47 75 18 94/59 L 98 09/09/18 03:41 88 18 103/69 98 09/09/18 02:41 86 18 105/86 99 09/09/18 01:46 84 18 113/71 99 09/08/18 23:31 36.7 C 87 24 127/87 99 Pain Intensity Left Flank: Pain Intensity: 3 Transfer of Care Handoff Completed per policy Notes Mental Status: alert / awake / arousable and participated in evaluation Patient Amnestic to Procedure: Yes Nausea / Vomiting: adequately controlled Pain: adequately controlled Airway Patency, RR, SpO2: stable & adequate BP & HR: stable & adequate Hydration State: stable & adequate Anesthetic Complications: no major complications apparent and Pt Satisfied with anesthetic care
--- NOTE | 2018-09-09 10:08 | Operative Report ---
DATE OF OPERATION: 09/09/2018 PROCEDURE: Left salpingectomy. INDICATIONS FOR SURGERY: 1. Ruptured left-sided ectopic . 2. Hemoperitoneum. PREOPERATIVE DIAGNOSES: Ruptured left-sided ectopic with hemoperitoneum. POSTOPERATIVE DIAGNOSES: Ruptured left-sided ectopic with hemoperitoneum. Approximately 100 mL of blood in the abdomen. SURGEON: Dr. Roca. ESTIMATED BLOOD LOSS: From the procedure about 100 mL. ANESTHESIA: General. OPERATIVE FINDINGS AND PROCEDURE: The patient was brought to the OR table, correctly identified by armband and conversation. General anesthesia was administered. Perineum and vagina were painted with Betadine paint. Lower abdomen was painted with Betadine paint. A metal catheter was used to empty the bladder. A weighted speculum was placed in the posterior vagina. Anterior lip of the cervix grasped with single tooth tenaculum and an acorn cannula was inserted to cervical canal and connected to the tenaculum for manipulation of the uterus. Then the patient was draped in usual sterile fashion. Attention was turned to the abdomen. Subumbilical area was infiltrated with local with epinephrine. Stab wound was placed. Veress needle was inserted into the abdominal cavity. Position was checked with normal saline via 2-3 liters of carbon dioxide gas was passed under low pressure. Incision was then widened laterally. Large cannula and trocar was inserted. Good visualization of abdominal structures was obtained at this time. There was intraperitoneal blood and a large blood clot in the left adnexa. Second puncture site was made in the midline 3 fingerbreadths above the pubic symphysis. This area was also infiltrated with local with epinephrine. A 5 mm trocar and sleeve was inserted under direct visualization. Trocar was removed and then a blunt probe was used to manipulate the bowels out of the pelvic cavity and a suction cutter brake lining was used to suction out all of the clotted blood. I cleaned up the pelvis. We were eventually able to grab the left fallopian tube, bring it up towards the abdomen. The ectopic was in the distal portion of the tube. It was ruptured and bleeding. A second puncture site was made in the left lower quadrant after infiltrating the area with local with epinephrine and placing a 5 mm trocar and sleeve. Following this, bipolar Kleppinger was inserted into the left port and the base of the tube was cauterized with bipolar cauterization. Once the base had been thoroughly cauterized using laparoscopic scissors to cut the distal portion of the tube away, which contained the ectopic , I then inserted a specimen bag into the left lateral port, dropped the specimen in the bag and pulled it out through the incision. Then I continued to irrigate the pelvis, checked for hemostasis. Hemostasis was excellent and procedure was then terminated. Gas was expressed manually. Ports were cleansed with Betadine and sutured in there with interrupted Vicryl. I attest to the content of the Intraoperative Record and any orders documented therein. Any exception s are noted below.
[2018-09-09] MEDS ORDERED: COUGH DROP (SUGAR FREE) LOZ 24 LOZ/1 BOX BUCCAL STA (10:53)
--- NOTE | 2018-09-09 17:40 | Discharge Summary ---
The patient has been followed by [facility] for her early with serial beta units. They were rising appropriately. The day prior to discharge, she had sudden onset of left-sided pain. She was seen in the Emergency Room. She was thoroughly worked up with beta units and an ultrasound. The ultrasound at that time was normal and the beta units had showed an appropriate rise. She was discharged home and suddenly at home, the left-sided pain became significantly worse. She was re-seen at the Emergency Room. The transvaginal ultrasound was redone, now she had intraabdominal fluid with a complex left adnexal mass consistent with an ectopic . Her admission hemoglobin was 14.1 and eventually it fell to 12.9 and postoperatively it was 11.6. I saw the patient in the Emergency Room. Discussed the procedure with her, then took her to the OR where I did removed her left tube along with the ectopic laparoscopically. The ectopic was in the distal portion of the left fallopian tube. There was a lot of intraperitoneal blood. The tube had been ruptured and I basically removed the left tube along with the ectopic . Postoperatively, she did well. Her hemoglobin stabilized at 11.6. At the time of discharge, she had good bowel sounds. She was ambulating well, eating well. Pain was well controlled. I did give her a prescription of Tylenol #3 with codeine to take in addition to nonnarcotic pain relievers and she will call the [facility] PHYSIOLOG[facility] for followup.
== END 2018-09-09 13:22 | disposition home or self-care (01) ==
LOC: ED 23:29 → OR 09-09 05:16 → 4N 09-09 05:16

== ENCOUNTER 2019-06-17 17:53 | Inpatient (IN) ==
[2019-06-17] MEDS ORDERED: NICOTINE POLACRILEX 2 MG GUM MT PRN (18:17)
[2019-06-17] MEDS ORDERED: NICOTINE 14 MG/24 HR PATCH TD STA (18:17)
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
[2019-06-17 18:22] LABS: Pregnancy Test, Urine Negative (Negative)
[2019-06-17 18:27] LABS: Appearance Urine Clear (Clear); Bacteria Urine Automated Negative (Negative); Bilirubin Urine Negative (Negative); Blood Urine Negative (Negative); Cast Urine Automated 0 /lpf (0-5); Color Urine Yellow; Epithelial Cell Urine Auto 20-30 /lpf (0-5); Glucose Urine UA Negative (Negative); Ketones Urine Negative (Negative); Leukocyte Esterase Urine Trace (Negative); Nitrite Urine Negative (Negative); Protein Urine Negative (Negative); RBC Urine Automated 0-4 /hpf (0-4); Specific Gravity Urine 1.011 (1.000-1.030); Urobilinogen Urine Negative (Negative); pH Urine 5.5 (4.5-7.5)
[2019-06-17 18:53] LABS: Amphetamines+Metham, Urine Neg (Neg); Barbiturates, Urine Neg (Neg); Benzodiazepine, Urine Neg (Neg); Cocaine, Urine Neg (Neg); MDMA (Ecstacy), Urine Neg (Neg); Methadone, Urine Neg (Neg); Opiate, Urine Neg (Neg); Phencyclidine, Urine Neg (Neg)
[2019-06-17 19:16] LABS: Basophils # (auto) 0.07 K/uL (0-0.2); Basophils % (auto) 0.7 %; Eosinophils # (auto) 0.04 K/uL (0-0.5); Eosinophils % (auto) 0.4 %; Hematocrit (blood only) 43.4 % (37-47); Hemoglobin 14.9 g/dL (12.0-16.0); Immature Granulocytes # (auto) 0.02 K/uL (0.00-0.02); Immature Granulocytes % (auto) 0.2 %; Lymphocytes % (auto) 26.1 %; Mean Corpuscular Hgb Conc 34.3 g/dL (32-36); Mean Corpuscular Volume 87.3 fL (80-100); Mean Platelet Volume 9.9 fL (7.4-10.4); Monocytes # (auto) 0.56 K/uL (0.11-0.59); Monocytes % (auto) 5.8 %; Neutrophils % (auto) 66.8 %; Platelet Count 389 K/uL (130-400); RDW Coefficient of Variation 13.2 % (11.5-14.5); RDW Standard Deviation 42.2 fL (36.4-46.3); Red Blood Count 4.97 M/uL (4.2-5.4); White Blood Count 9.59 K/uL (4.8-10.8)
[2019-06-17 19:21] LABS: Albumin Level 3.7 gm/dl (3.4-5.0); BUN Creatinine Ratio 7.3 (10-20); Creatinine Clr Calc Pharmacy 103.8 ml/min; Est GFR (African American) 121.4; Est GFR (Non-African American) 104.7; Potassium 3.7 mmol/L (3.5-5.1)
[2019-06-17 19:31] LABS: Albumin Globulin Ratio 0.9 (0.9-2); Bilirubin,Total 0.4 mg/dl (0.2-1); Thyroid Stimulating Hormone 3.01 uIu/ml (0.300-4.500); Total Protein 7.7 gm/dl (6.4-8.2)
[2019-06-17 19:42] LABS: Salicylate 4.4 mg/dl (2.8-20)
[2019-06-17 19:43] LABS: Acetaminophen < 2 ug/ml (10-30)
[2019-06-17] MEDS ORDERED: ACETAMINOPHEN 500 MG TAB PO STA (20:24)
[2019-06-17] MEDS ORDERED: MAGNESIUM HYDROXIDE SUSP 30 ML UDC PO PRN (22:45)
[2019-06-17] MEDS ORDERED: ALUMINUM/MAGNESIUM SUSP 30 ML UDC PO PRN (22:45)
[2019-06-17] MEDS ORDERED: SODIUM CHLORIDE 0.65% NA SOLN 45 ML (OCEAN) PRN (22:45)
[2019-06-17] MEDS ORDERED: ACETAMINOPHEN 325 MG TAB PO PRN (22:45)
[2019-06-17] MEDS ORDERED: BISMUTH SUBSALICYLATE PER ML OMNICELL CHARGE PO PRN (22:45)
[2019-06-18] MEDS: TOPIRAMATE 50 MG TAB PO SCH ×2 (01:26→10:06)
[2019-06-18] MEDS: SUMAtriptan succinate 100 MG TAB PO PRN ×2 (01:46→21:18)
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
[2019-06-18] MEDS ORDERED: TOPIRAMATE 50 MG TAB PO PRN (11:35)
[2019-06-18] MEDS: NICOTINE POLACRILEX 2 MG GUM MT PRN ×2 (18:58→20:58)
[2019-06-19] MEDS: NICOTINE 14 MG/24 HR PATCH TD SCH (09:03)
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
[2019-06-20] MEDS: NICOTINE 14 MG/24 HR PATCH TD SCH (08:33)
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
== END 2019-06-20 11:05 | disposition home or self-care (01) | DRG 885 ==
LOC: ED 17:53 → 3S 22:45